=== PATIENT | male | born 1955 | race Caucasian/White ===

== ENCOUNTER 2020-12-12 07:42 | Outpatient (CLI) | payer OTHER | END 2020-12-12 23:59 | disposition home or self-care (01) | LOC: WOUND 07:42 | PROVIDERS: ATTEND Internal Medicine | DX: E11.621 Type 2 diabetes mellitus with foot ulcer (principal); L97.511 Non-pressure chronic ulcer of other part of right foot limited to breakdown of skin; E11.65 Type 2 diabetes mellitus with hyperglycemia; E11.40 Type 2 diabetes mellitus with diabetic neuropathy, unspecified; G89.4 Chronic pain syndrome; L84 Corns and callosities; Z87.891 Personal history of nicotine dependence; Z79.4 Long term (current) use of insulin; Z88.2 Allergy status to sulfonamides | CPT/HCPCS: 97597; 99205 ==

== ENCOUNTER → 2020-12-19 | Outpatient (CLI) | payer OTHER | END | disposition home or self-care (01) | LOC: WOUND 08:06 | PROVIDERS: ATTEND Internal Medicine | DX: E11.621 Type 2 diabetes mellitus with foot ulcer (principal); L97.511 Non-pressure chronic ulcer of other part of right foot limited to breakdown of skin; E11.622 Type 2 diabetes mellitus with other skin ulcer; L97.212 Non-pressure chronic ulcer of right calf with fat layer exposed; E11.40 Type 2 diabetes mellitus with diabetic neuropathy, unspecified; G89.4 Chronic pain syndrome; L84 Corns and callosities; Z87.891 Personal history of nicotine dependence; Z79.4 Long term (current) use of insulin; Z88.2 Allergy status to sulfonamides | CPT/HCPCS: 97597 ==

== ENCOUNTER 2020-12-26 07:50 | Outpatient (CLI) | payer OTHER | END 2020-12-26 23:59 | disposition home or self-care (01) | LOC: WOUND 07:50 | PROVIDERS: ATTEND Internal Medicine | DX: E11.621 Type 2 diabetes mellitus with foot ulcer (principal); L97.511 Non-pressure chronic ulcer of other part of right foot limited to breakdown of skin; E11.622 Type 2 diabetes mellitus with other skin ulcer; L97.212 Non-pressure chronic ulcer of right calf with fat layer exposed; E11.40 Type 2 diabetes mellitus with diabetic neuropathy, unspecified; G89.4 Chronic pain syndrome; L84 Corns and callosities; Z87.891 Personal history of nicotine dependence; Z79.4 Long term (current) use of insulin; Z88.2 Allergy status to sulfonamides | CPT/HCPCS: 97597 ==

== ENCOUNTER → 2021-01-02 | Outpatient (CLI) | payer OTHER | END | disposition home or self-care (01) | LOC: WOUND 09:43 | PROVIDERS: ATTEND Internal Medicine | DX: E11.621 Type 2 diabetes mellitus with foot ulcer (principal); L97.511 Non-pressure chronic ulcer of other part of right foot limited to breakdown of skin; E11.622 Type 2 diabetes mellitus with other skin ulcer; L97.212 Non-pressure chronic ulcer of right calf with fat layer exposed; E11.40 Type 2 diabetes mellitus with diabetic neuropathy, unspecified; G89.4 Chronic pain syndrome; L84 Corns and callosities; Z87.891 Personal history of nicotine dependence; Z79.4 Long term (current) use of insulin; Z88.2 Allergy status to sulfonamides | CPT/HCPCS: 97597 ==

== ENCOUNTER → 2021-01-11 | Outpatient (CLI) | payer OTHER | END | disposition home or self-care (01) | LOC: WOUND 07:57 | PROVIDERS: ATTEND Internal Medicine | DX: E11.621 Type 2 diabetes mellitus with foot ulcer (principal); L97.511 Non-pressure chronic ulcer of other part of right foot limited to breakdown of skin; E11.622 Type 2 diabetes mellitus with other skin ulcer; L97.212 Non-pressure chronic ulcer of right calf with fat layer exposed; E11.40 Type 2 diabetes mellitus with diabetic neuropathy, unspecified; G89.4 Chronic pain syndrome; L84 Corns and callosities; Z87.891 Personal history of nicotine dependence; Z79.4 Long term (current) use of insulin; Z88.2 Allergy status to sulfonamides | CPT/HCPCS: 97597 ==

== ENCOUNTER → 2021-01-16 | Outpatient (CLI) | payer OTHER | END | disposition home or self-care (01) | LOC: WOUND 08:00 | PROVIDERS: ATTEND Internal Medicine | DX: E11.621 Type 2 diabetes mellitus with foot ulcer (principal); L97.511 Non-pressure chronic ulcer of other part of right foot limited to breakdown of skin; E11.622 Type 2 diabetes mellitus with other skin ulcer; L97.212 Non-pressure chronic ulcer of right calf with fat layer exposed; E11.40 Type 2 diabetes mellitus with diabetic neuropathy, unspecified; G89.4 Chronic pain syndrome; L84 Corns and callosities; Z87.891 Personal history of nicotine dependence; Z88.2 Allergy status to sulfonamides | CPT/HCPCS: 97597 ==

== ENCOUNTER → 2021-01-23 | Outpatient (CLI) | payer OTHER | END | disposition home or self-care (01) | LOC: WOUND 07:46 | PROVIDERS: ATTEND Internal Medicine | DX: E11.621 Type 2 diabetes mellitus with foot ulcer (principal); L97.511 Non-pressure chronic ulcer of other part of right foot limited to breakdown of skin; E11.622 Type 2 diabetes mellitus with other skin ulcer; L97.212 Non-pressure chronic ulcer of right calf with fat layer exposed; E11.40 Type 2 diabetes mellitus with diabetic neuropathy, unspecified; G89.4 Chronic pain syndrome; L84 Corns and callosities; Z87.891 Personal history of nicotine dependence; Z88.2 Allergy status to sulfonamides; Z79.4 Long term (current) use of insulin | CPT/HCPCS: 99214; G0463 ==

== ENCOUNTER → 2021-01-30 | Outpatient (CLI) | payer OTHER | END | disposition home or self-care (01) | LOC: WOUND 08:07 | PROVIDERS: ATTEND Internal Medicine | DX: E11.621 Type 2 diabetes mellitus with foot ulcer (principal); L97.511 Non-pressure chronic ulcer of other part of right foot limited to breakdown of skin; E11.622 Type 2 diabetes mellitus with other skin ulcer; L97.212 Non-pressure chronic ulcer of right calf with fat layer exposed; E11.40 Type 2 diabetes mellitus with diabetic neuropathy, unspecified; G89.4 Chronic pain syndrome; L84 Corns and callosities; Z87.891 Personal history of nicotine dependence; Z88.2 Allergy status to sulfonamides; Z79.4 Long term (current) use of insulin | CPT/HCPCS: 97597 ==

== ENCOUNTER 2021-02-06 08:03 | Outpatient (CLI) | payer OTHER | END 2021-02-06 23:59 | disposition home or self-care (01) | LOC: WOUND 08:03 | PROVIDERS: ATTEND Internal Medicine | DX: E11.621 Type 2 diabetes mellitus with foot ulcer (principal); L97.512 Non-pressure chronic ulcer of other part of right foot with fat layer exposed; E11.622 Type 2 diabetes mellitus with other skin ulcer; L97.212 Non-pressure chronic ulcer of right calf with fat layer exposed; E11.40 Type 2 diabetes mellitus with diabetic neuropathy, unspecified; E11.65 Type 2 diabetes mellitus with hyperglycemia; G89.4 Chronic pain syndrome; L84 Corns and callosities; Z87.891 Personal history of nicotine dependence; Z79.4 Long term (current) use of insulin; Z88.2 Allergy status to sulfonamides | CPT/HCPCS: 11042 ==

== ENCOUNTER 2021-02-16 08:33 | Outpatient (CLI) | payer OTHER | END 2021-02-16 23:59 | disposition home or self-care (01) | LOC: WOUND 08:33 | PROVIDERS: ATTEND Podiatrist Foot & Ankle Surgery | DX: E11.621 Type 2 diabetes mellitus with foot ulcer (principal); L97.511 Non-pressure chronic ulcer of other part of right foot limited to breakdown of skin; E11.622 Type 2 diabetes mellitus with other skin ulcer; L97.212 Non-pressure chronic ulcer of right calf with fat layer exposed; L03.115 Cellulitis of right lower limb; E11.40 Type 2 diabetes mellitus with diabetic neuropathy, unspecified; E11.65 Type 2 diabetes mellitus with hyperglycemia; G89.4 Chronic pain syndrome; L84 Corns and callosities; Z87.891 Personal history of nicotine dependence; Z79.4 Long term (current) use of insulin; Z88.2 Allergy status to sulfonamides | CPT/HCPCS: 97597 ==

== ENCOUNTER 2021-02-23 09:15 | Outpatient (CLI) | payer OTHER | END 2021-02-23 23:59 | disposition home or self-care (01) | LOC: WOUND 09:15 | PROVIDERS: ATTEND Podiatrist Foot & Ankle Surgery | DX: E11.621 Type 2 diabetes mellitus with foot ulcer (principal); L97.512 Non-pressure chronic ulcer of other part of right foot with fat layer exposed; E11.622 Type 2 diabetes mellitus with other skin ulcer; L97.311 Non-pressure chronic ulcer of right ankle limited to breakdown of skin; L97.212 Non-pressure chronic ulcer of right calf with fat layer exposed; L03.115 Cellulitis of right lower limb; E11.40 Type 2 diabetes mellitus with diabetic neuropathy, unspecified; E11.65 Type 2 diabetes mellitus with hyperglycemia; G89.4 Chronic pain syndrome; L84 Corns and callosities; Z87.891 Personal history of nicotine dependence; Z79.4 Long term (current) use of insulin; Z88.2 Allergy status to sulfonamides | CPT/HCPCS: 11042 ==

== ENCOUNTER 2021-03-02 09:11 | Outpatient (CLI) | payer OTHER | END 2021-03-02 23:59 | disposition home or self-care (01) | LOC: WOUND 09:11 | PROVIDERS: ATTEND Podiatrist Foot & Ankle Surgery | DX: E11.621 Type 2 diabetes mellitus with foot ulcer (principal); L97.512 Non-pressure chronic ulcer of other part of right foot with fat layer exposed; E11.622 Type 2 diabetes mellitus with other skin ulcer; L97.212 Non-pressure chronic ulcer of right calf with fat layer exposed; E11.65 Type 2 diabetes mellitus with hyperglycemia; E11.40 Type 2 diabetes mellitus with diabetic neuropathy, unspecified; L84 Corns and callosities; G89.4 Chronic pain syndrome; Z79.4 Long term (current) use of insulin; Z87.891 Personal history of nicotine dependence | CPT/HCPCS: 11042 ==

== ENCOUNTER 2021-03-09 08:34 | Outpatient (CLI) | payer OTHER | END 2021-03-09 23:59 | disposition home or self-care (01) | LOC: WOUND 08:34 | PROVIDERS: ATTEND Podiatrist Foot & Ankle Surgery | DX: E11.621 Type 2 diabetes mellitus with foot ulcer (principal); L97.511 Non-pressure chronic ulcer of other part of right foot limited to breakdown of skin; E11.622 Type 2 diabetes mellitus with other skin ulcer; L97.212 Non-pressure chronic ulcer of right calf with fat layer exposed; L03.115 Cellulitis of right lower limb; E11.40 Type 2 diabetes mellitus with diabetic neuropathy, unspecified; E11.65 Type 2 diabetes mellitus with hyperglycemia; G89.4 Chronic pain syndrome; L84 Corns and callosities; Z87.891 Personal history of nicotine dependence; Z79.4 Long term (current) use of insulin; Z88.2 Allergy status to sulfonamides | CPT/HCPCS: 97597 ==

== ENCOUNTER → 2021-03-09 | Outpatient (CLI) | payer OTHER | END | disposition home or self-care (01) | LOC: CFH 09:44 | PROVIDERS: ATTEND Podiatrist Foot & Ankle Surgery | DX: E11.621 Type 2 diabetes mellitus with foot ulcer (principal) ==

== ENCOUNTER 2021-03-16 09:00 | Outpatient (CLI) | payer OTHER | END 2021-03-16 23:59 | disposition home or self-care (01) | LOC: WOUND 09:00 | PROVIDERS: ATTEND Podiatrist Foot & Ankle Surgery | DX: E11.621 Type 2 diabetes mellitus with foot ulcer (principal); L97.512 Non-pressure chronic ulcer of other part of right foot with fat layer exposed; E11.622 Type 2 diabetes mellitus with other skin ulcer; L97.212 Non-pressure chronic ulcer of right calf with fat layer exposed; E11.40 Type 2 diabetes mellitus with diabetic neuropathy, unspecified; E11.65 Type 2 diabetes mellitus with hyperglycemia; G89.4 Chronic pain syndrome; L84 Corns and callosities; Z87.891 Personal history of nicotine dependence; Z79.4 Long term (current) use of insulin; Z88.2 Allergy status to sulfonamides | CPT/HCPCS: 11042 ==

== ENCOUNTER 2021-03-23 09:47 | Outpatient (CLI) | payer OTHER | END 2021-03-23 23:59 | disposition home or self-care (01) | LOC: WOUND 09:47 | PROVIDERS: ATTEND Podiatrist Foot & Ankle Surgery | DX: E11.621 Type 2 diabetes mellitus with foot ulcer (principal); L97.512 Non-pressure chronic ulcer of other part of right foot with fat layer exposed; E11.622 Type 2 diabetes mellitus with other skin ulcer; L97.212 Non-pressure chronic ulcer of right calf with fat layer exposed; L03.115 Cellulitis of right lower limb; E11.40 Type 2 diabetes mellitus with diabetic neuropathy, unspecified; E11.65 Type 2 diabetes mellitus with hyperglycemia; G89.4 Chronic pain syndrome; L84 Corns and callosities; Z87.891 Personal history of nicotine dependence; Z79.4 Long term (current) use of insulin; Z88.2 Allergy status to sulfonamides | CPT/HCPCS: 11042 ==

== ENCOUNTER → 2021-03-30 | Outpatient (CLI) | payer OTHER | END | disposition home or self-care (01) | LOC: WOUND 08:46 | PROVIDERS: ATTEND Podiatrist Foot & Ankle Surgery | DX: E11.621 Type 2 diabetes mellitus with foot ulcer (principal); L97.512 Non-pressure chronic ulcer of other part of right foot with fat layer exposed; E11.622 Type 2 diabetes mellitus with other skin ulcer; L97.212 Non-pressure chronic ulcer of right calf with fat layer exposed; E11.40 Type 2 diabetes mellitus with diabetic neuropathy, unspecified; E11.65 Type 2 diabetes mellitus with hyperglycemia; G89.4 Chronic pain syndrome; L84 Corns and callosities; Z87.891 Personal history of nicotine dependence; Z79.4 Long term (current) use of insulin; Z88.2 Allergy status to sulfonamides | CPT/HCPCS: 11042 ==

== ENCOUNTER 2021-04-06 08:43 | Outpatient (CLI) | payer OTHER | END 2021-04-06 23:59 | disposition home or self-care (01) | LOC: WOUND 08:43 | PROVIDERS: ATTEND Podiatrist Foot & Ankle Surgery | DX: E11.621 Type 2 diabetes mellitus with foot ulcer (principal); L97.512 Non-pressure chronic ulcer of other part of right foot with fat layer exposed; E11.622 Type 2 diabetes mellitus with other skin ulcer; L97.212 Non-pressure chronic ulcer of right calf with fat layer exposed; L03.115 Cellulitis of right lower limb; E11.40 Type 2 diabetes mellitus with diabetic neuropathy, unspecified; E11.65 Type 2 diabetes mellitus with hyperglycemia; G89.4 Chronic pain syndrome; L84 Corns and callosities; Z87.891 Personal history of nicotine dependence; Z79.4 Long term (current) use of insulin; Z88.2 Allergy status to sulfonamides | CPT/HCPCS: 11042 ==

== ENCOUNTER 2021-04-13 08:46 | Outpatient (CLI) | payer OTHER | END 2021-04-13 23:59 | disposition home or self-care (01) | LOC: WOUND 08:46 | PROVIDERS: ATTEND Podiatrist Foot & Ankle Surgery | DX: E11.621 Type 2 diabetes mellitus with foot ulcer (principal); L97.512 Non-pressure chronic ulcer of other part of right foot with fat layer exposed; E11.622 Type 2 diabetes mellitus with other skin ulcer; L97.212 Non-pressure chronic ulcer of right calf with fat layer exposed; L03.115 Cellulitis of right lower limb; E11.40 Type 2 diabetes mellitus with diabetic neuropathy, unspecified; E11.65 Type 2 diabetes mellitus with hyperglycemia; G89.4 Chronic pain syndrome; L84 Corns and callosities; Z87.891 Personal history of nicotine dependence; Z79.4 Long term (current) use of insulin; Z88.2 Allergy status to sulfonamides | CPT/HCPCS: 97597 ==

== ENCOUNTER 2021-04-20 10:23 | Outpatient (CLI) | payer OTHER | END 2021-04-20 23:59 | disposition home or self-care (01) | LOC: WOUND 10:23 | PROVIDERS: ATTEND Podiatrist Foot & Ankle Surgery | DX: E11.621 Type 2 diabetes mellitus with foot ulcer (principal); L97.511 Non-pressure chronic ulcer of other part of right foot limited to breakdown of skin; E11.622 Type 2 diabetes mellitus with other skin ulcer; L97.212 Non-pressure chronic ulcer of right calf with fat layer exposed; L03.115 Cellulitis of right lower limb; E11.40 Type 2 diabetes mellitus with diabetic neuropathy, unspecified; E11.65 Type 2 diabetes mellitus with hyperglycemia; G89.4 Chronic pain syndrome; L84 Corns and callosities; Z87.891 Personal history of nicotine dependence; Z79.4 Long term (current) use of insulin; Z88.2 Allergy status to sulfonamides | CPT/HCPCS: 99212 ==

== ENCOUNTER 2021-04-27 09:56 | Outpatient (CLI) | payer OTHER | END 2021-04-27 23:59 | disposition home or self-care (01) | LOC: WOUND 09:56 | PROVIDERS: ATTEND Podiatrist Foot & Ankle Surgery | DX: E11.621 Type 2 diabetes mellitus with foot ulcer (principal); L97.511 Non-pressure chronic ulcer of other part of right foot limited to breakdown of skin; E11.622 Type 2 diabetes mellitus with other skin ulcer; L97.212 Non-pressure chronic ulcer of right calf with fat layer exposed; L03.115 Cellulitis of right lower limb; E11.40 Type 2 diabetes mellitus with diabetic neuropathy, unspecified; E11.65 Type 2 diabetes mellitus with hyperglycemia; G89.4 Chronic pain syndrome; L84 Corns and callosities; Z87.891 Personal history of nicotine dependence; Z79.4 Long term (current) use of insulin; Z88.2 Allergy status to sulfonamides | CPT/HCPCS: 97597 ==

== ENCOUNTER → 2021-05-04 | Outpatient (CLI) | payer OTHER | END | disposition home or self-care (01) | LOC: WOUND 08:38 | PROVIDERS: ATTEND Podiatrist Foot & Ankle Surgery | DX: E11.621 Type 2 diabetes mellitus with foot ulcer (principal); L97.511 Non-pressure chronic ulcer of other part of right foot limited to breakdown of skin; E11.622 Type 2 diabetes mellitus with other skin ulcer; L97.212 Non-pressure chronic ulcer of right calf with fat layer exposed; L03.115 Cellulitis of right lower limb; E11.40 Type 2 diabetes mellitus with diabetic neuropathy, unspecified; E11.65 Type 2 diabetes mellitus with hyperglycemia; G89.4 Chronic pain syndrome; L84 Corns and callosities; Z87.891 Personal history of nicotine dependence; Z79.4 Long term (current) use of insulin; Z88.2 Allergy status to sulfonamides | CPT/HCPCS: 97597 ==

== ENCOUNTER → 2021-05-11 | Outpatient (CLI) | payer OTHER | END | disposition home or self-care (01) | LOC: WOUND 09:18 | PROVIDERS: ATTEND Podiatrist Foot & Ankle Surgery | DX: E11.621 Type 2 diabetes mellitus with foot ulcer (principal); L97.512 Non-pressure chronic ulcer of other part of right foot with fat layer exposed; E11.622 Type 2 diabetes mellitus with other skin ulcer; L97.212 Non-pressure chronic ulcer of right calf with fat layer exposed; E11.65 Type 2 diabetes mellitus with hyperglycemia; E11.40 Type 2 diabetes mellitus with diabetic neuropathy, unspecified; L03.115 Cellulitis of right lower limb; L84 Corns and callosities; G89.4 Chronic pain syndrome; Z87.891 Personal history of nicotine dependence; Z79.4 Long term (current) use of insulin ==